=== PATIENT | male | born 1985 | race African-American/Black ===

== ENCOUNTER 2024-04-28 02:32 | Inpatient (IN) | payer OTHER ==
[~2024-04-28] VITALS: Ht 175.3 cm; Wt 123.4 kg
[2024-04-28] VITALS (65 sets, daily range): BP systolic 92–166; BP diastolic 57–113; PULSE 88–118; RESP 14–39; TEMP 36.114–36.9474; O2SAT 78–100
[2024-04-28] MEDS ORDERED: AMIODARONE HCL 900 MG in DEXT 5% WATER 500 ML IV STA (02:42)
[2024-04-28] MEDS ORDERED: HEPARIN 5000 UNITS/ML VIAL IV ONE (02:45)
[2024-04-28] MEDS ORDERED: ASPIRIN 325MG TABLET PO ONE (02:45)
[2024-04-28] MEDS ORDERED: DIPHENHYDRAMINE 50MG/ML VIAL ONE (02:52)
[2024-04-28] MEDS: SODIUM CHLORIDE 0.9% 1,000 ML IV ONE (02:52)
[2024-04-28] MEDS ORDERED: VERAPAMIL HCL 2.5 MG/1 ML 2ML VIAL IV ONE (02:52)
[2024-04-28] MEDS: SODIUM CHLORIDE 0.9% 500 ML IV ONE (02:52)
[2024-04-28] MEDS ORDERED: IODIXANOL 320MG/ML 100 ML BOTTLE IV ONE (02:53)
[2024-04-28] MEDS ORDERED: HEPARIN 1000 UNITS/ML 10ML ONE (02:53)
[2024-04-28] MEDS: HEPARIN 5000 UNITS/ML VIAL IV NR (02:53)
[2024-04-28] MEDS: ASPIRIN 325MG TABLET PO NR (02:53)
[2024-04-28] MEDS ORDERED: MIDAZOLAM HCL 2 MG/2 ML VIAL ONE (02:53)
[2024-04-28] MEDS ORDERED: FENTANYL CITRATE/PF 50MCG/ML 2ML VIAL ONE (02:53)
[2024-04-28] MEDS ORDERED: LIDOCAINE HCL 1% 20ML VIAL ONE (02:53)
[2024-04-28 02:58] LABS: EOSINOPHILS % 4.3 % (0.0-5.0); HEMATOCRIT. 44.9 % (42.0-52.0); HEMOGLOBIN. 15.1 g/dL (14.0-18.0); LYMPHOCYTES % 43.6 % (20.0-50.0); MEAN CORPUSCULAR HEMOGLOBIN 28.8 pg (28.0-32.0); MEAN CORPUSCULAR HGB CONC 33.6 g/dL (31.0-37.0); MEAN CORPUSCULAR VOLUME 85.5 fL (80.0-94.0); MEAN PLATELET VOLUME 6.9 fl (7.4-10.4); MONOCYTES % 6.1 % (2.0-8.0); PLATELET 361 x1000/uL (130-400); RED BLOOD CELL COUNT 5.25 mill/uL (4.7-6.1); RED CELL DISTRIBUTION WIDTH 14.9 % (11.6-14.6); WHITE BLOOD COUNT 8.8 x1000/uL (4.5-11.0)
[2024-04-28 03:08] LABS: CHLORIDE 106 mEq/L (98-107); SODIUM 139 mEq/L (136-145)
[2024-04-28 03:09] LABS: CARBON DIOXIDE 18 mEq/L (21-32)
[2024-04-28 03:10] LABS: CALCIUM 8.8 mg/dL (8.7-10.4)
[2024-04-28 03:14] LABS: CREATININE 1.2 mg/dL (0.6-1.3); GLUCOSE 137 mg/dL (70-105); UREA NITROGEN BLOOD 8 mg/dL (9-23)
[2024-04-28 03:15] LABS: ETHANOL BLOOD 40 mg/dL (<10); TROPONIN I HIGH SENSITIVITY 16 ng/L (3.0-53)
[2024-04-28 03:21] LABS: LACTIC ACID 5.4 mmol/L (0.4-2.0)
[2024-04-28 03:22] LABS: POTASSIUM 2.6 mEq/L (3.5-5.1)
[2024-04-28] MEDS: AMIODARONE HCL 900 MG in DEXT 5% WATER 500 ML IV PRN (04:11)
[2024-04-28] MEDS: MAGNESIUM 4 G PREMIX 100 ML IV NR (04:51)
[2024-04-28] MEDS ORDERED: ACETAMINOPHEN 325MG TABLET PO PRN ×4 (05:00→17:45)
[2024-04-28] MEDS ORDERED: ATROPINE SULFATE 1MG/10ML SYR IV PRN (05:00)
[2024-04-28] MEDS: KCL 20MEQ/100ML PREMIX 100 ML IV SCH (05:38)
[2024-04-28] MEDS: FUROSEMIDE 40MG/4ML VIAL IVP SCH (08:37)
[2024-04-28] MEDS: CLOPIDOGREL 75MG TABLET PO SCH (08:38)
[2024-04-28] MEDS: POTASSIUM CHLORIDE 20MEQ TABLET SR PO SCH (08:38)
[2024-04-28] MEDS: ASPIRIN 81MG TABLET PO SCH (08:38)
[2024-04-28 09:32] LABS: CHLORIDE 107 mEq/L (98-107); POTASSIUM 4.8 mEq/L (3.5-5.1); SODIUM 138 mEq/L (136-145)
[2024-04-28 09:33] LABS: CALCIUM 8.3 mg/dL (8.7-10.4); CARBON DIOXIDE 23 mEq/L (21-32)
[2024-04-28 09:38] LABS: GLUCOSE 112 mg/dL (70-105)
[2024-04-28 09:39] LABS: UREA NITROGEN BLOOD 9 mg/dL (9-23)
[2024-04-28 09:40] LABS: ALANINE AMINOTRANSFERASE 171 IU/L (10-49); ALBUMIN 4.1 g/dL (3.2-4.8); ASPARTATE AMINOTRANSFERASE 721 IU/L (<34)
[2024-04-28 09:41] LABS: BILIRUBIN TOTAL 0.7 mg/dL (0.1-1.0); PROTEIN TOTAL 6.9 g/dL (6.0-8.3)
[2024-04-28] MEDS: TRAMADOL 50MG TABLET PO PRN (09:58)
[2024-04-28] MEDS ORDERED: NALOXONE HCL 0.4MG/ML VIAL IV PRN (10:00)
[2024-04-28 10:46] LABS: TROPONIN I HIGH SENSITIVITY 150698 ng/L (3.0-53)
[2024-04-28] MEDS: MORPHINE SULFATE 2 MG/ML INJ (NOT FOR IM USE) IV NR (11:27)
[2024-04-28 12:01] LABS: CHLORIDE 107 mEq/L (98-107); POTASSIUM 4.7 mEq/L (3.5-5.1); SODIUM 137 mEq/L (136-145)
[2024-04-28 12:02] LABS: CALCIUM 8.5 mg/dL (8.7-10.4); CARBON DIOXIDE 26 mEq/L (21-32)
[2024-04-28 12:03] LABS: HEMATOCRIT. 45.9 % (42.0-52.0); HEMOGLOBIN. 15.1 g/dL (14.0-18.0); MEAN CORPUSCULAR HEMOGLOBIN 27.7 pg (28.0-32.0); MEAN CORPUSCULAR HGB CONC 32.9 g/dL (31.0-37.0); MEAN CORPUSCULAR VOLUME 84.3 fL (80.0-94.0); MEAN PLATELET VOLUME 7.1 fl (7.4-10.4); PLATELET 371 x1000/uL (130-400); RED BLOOD CELL COUNT 5.45 mill/uL (4.7-6.1); WHITE BLOOD COUNT 13.2 x1000/uL (4.5-11.0)
[2024-04-28 12:07] LABS: CREATININE 1.1 mg/dL (0.6-1.3); GLUCOSE 106 mg/dL (70-105); UREA NITROGEN BLOOD 12 mg/dL (9-23)
[2024-04-28 12:13] LABS: DIFFERENTIAL COMMENT 1
[2024-04-28 12:59] LABS: PLATELET ESTIMATE NORMAL
[2024-04-28] MEDS ORDERED: MAGNESIUM/ALUMINUM HYDROXIDE/SIMETHICONE 30ML UDC PO PRN (17:45)
[2024-04-28] MEDS ORDERED: ONDANSETRON HCL 4MG/2ML INJ IV PRN (17:45)
[2024-04-28] MEDS ORDERED: DIPHENHYDRAMINE 50MG/ML VIAL IV PRN (17:45)
[2024-04-28] MEDS: SODIUM CHLORIDE 0.9% 3ML FLUSH IVF SCH (20:38)
[2024-04-28] MEDS: FAMOTIDINE 20MG TABLET PO SCH (20:38)
[2024-04-28] MEDS ORDERED: HYDRALAZINE 20MG/ML VIAL IV PRN (21:30)
[2024-04-28] MEDS: METOPROLOL SUCCINATE 50MG ER TABLET PO SCH (21:34)
[2024-04-29] VITALS (41 sets, daily range): BP systolic 111–143; BP diastolic 72–105; PULSE 88–116; RESP 18–32; TEMP 36.72516–37.33632; O2SAT 88–99
[2024-04-29 05:57] LABS: BASOPHILS % 0.4 % (0.0-2.0); EOSINOPHILS % 0.6 % (0.0-5.0); HEMATOCRIT. 43.9 % (42.0-52.0); HEMOGLOBIN. 14.1 g/dL (14.0-18.0); LYMPHOCYTES % 19.6 % (20.0-50.0); MEAN CORPUSCULAR HEMOGLOBIN 27.9 pg (28.0-32.0); MEAN CORPUSCULAR HGB CONC 32.2 g/dL (31.0-37.0); MEAN CORPUSCULAR VOLUME 86.6 fL (80.0-94.0); MEAN PLATELET VOLUME 7.5 fl (7.4-10.4); NEUTROPHILS % 72.4 % (40.0-76.0); PLATELET 195 x1000/uL (130-400); RED BLOOD CELL COUNT 5.07 mill/uL (4.7-6.1); RED CELL DISTRIBUTION WIDTH 15.3 % (11.6-14.6); WHITE BLOOD COUNT 9.9 x1000/uL (4.5-11.0)
[2024-04-29 06:02] LABS: CALCIUM 8.5 mg/dL (8.7-10.4); CARBON DIOXIDE 26 mEq/L (21-32); CHLORIDE 107 mEq/L (98-107); POTASSIUM 3.9 mEq/L (3.5-5.1); SODIUM 137 mEq/L (136-145)
[2024-04-29 06:07] LABS: GLUCOSE 97 mg/dL (70-105)
[2024-04-29 06:08] LABS: UREA NITROGEN BLOOD 9 mg/dL (9-23)
[2024-04-29] MEDS: IPRATROPIUM/ALBUTEROL 0.5-3(2.5)MG/3ML NEB HHN SCH (20:46)
[2024-04-30] VITALS (7 sets, daily range): BP systolic 94–109; BP diastolic 42–65; PULSE 75–89; RESP 16–20; TEMP 36.55848–37.16964; O2SAT 95–100
[2024-04-30] MEDS: ZOLPIDEM TARTRATE 5MG TABLET PO PRN (02:19)
[2024-05-01] MEDS ORDERED: FUROSEMIDE 40MG TABLET PO SCH (09:00)
== END 2024-04-30 17:08 | disposition home or self-care (01) | DRG 321 ==
LOC: ER 02:39 → CVICU 02:53 → 7WST 04-29 17:04
PROVIDERS: ADMIT Internal Medicine; ATTEND Internal Medicine
PROC: 027034Z Dilation of Coronary Artery, One Artery with Drug-eluting Intraluminal Device, Percutaneous Approach (ICD-10-PCS; principal; 2024-04-28)
PROC: 4A023N7 Measurement of Cardiac Sampling and Pressure, Left Heart, Percutaneous Approach (ICD-10-PCS; 2024-04-28)
PROC: B211YZZ Fluoroscopy of Multiple Coronary Arteries using Other Contrast (ICD-10-PCS; 2024-04-28)
PROC: 04HY32Z Insertion of Monitoring Device into Lower Artery, Percutaneous Approach (ICD-10-PCS; 2024-04-28)
PROC: 02HV33Z Insertion of Infusion Device into Superior Vena Cava, Percutaneous Approach (ICD-10-PCS; 2024-04-28)
PROC: B548ZZA Ultrasonography of Superior Vena Cava, Guidance (ICD-10-PCS; 2024-04-28)
PROC: 3E033PZ Introduction of Platelet Inhibitor into Peripheral Vein, Percutaneous Approach (ICD-10-PCS; 2024-04-28)
PROC: B24BYZZ Ultrasonography of Heart with Aorta using Other Contrast (ICD-10-PCS; 2024-04-28)
DX: I21.09 ST elevation (STEMI) myocardial infarction involving other coronary artery of anterior wall (principal); I46.2 Cardiac arrest due to underlying cardiac condition; I49.01 Ventricular fibrillation; J96.00 Acute respiratory failure, unspecified whether with hypoxia or hypercapnia; I50.21 Acute systolic (congestive) heart failure; Z68.41 Body mass index [BMI] 40.0-44.9, adult; G93.1 Anoxic brain damage, not elsewhere classified; E66.01 Morbid (severe) obesity due to excess calories; F14.10 Cocaine abuse, uncomplicated; D72.829 Elevated white blood cell count, unspecified; I25.10 Atherosclerotic heart disease of native coronary artery without angina pectoris; G47.30 Sleep apnea, unspecified; E87.6 Hypokalemia; Z79.899 Other long term (current) drug therapy; Z79.82 Long term (current) use of aspirin; Z79.02 Long term (current) use of antithrombotics/antiplatelets
CPT/HCPCS: 36415; 71045; 80048; 80053; 80320; 83605; 83735; 84132; 84484; 85025; 85347; 86850; 86900; 93005; 93306; 94640; 94660; C1726; J0282; J1200; J1644; J1940; J2250; J2270; J3010; J3475; J3480; J3490; J7030; J7040; J7060; L1830; Q9967; G0480